=== PATIENT | male | born 1985 | race Caucasian/White ===

== ENCOUNTER 2018-08-13 16:03 | Emergency (ER) | payer OTHER ==
[2018-08-13 16:15] VITALS: BP 133/87
[2018-08-13] MEDS ORDERED: HYDROcod/ACETAM 5/325 MG TABLET PO STA (16:53)
[2018-08-13] MEDS ORDERED: diazePAM 5 MG TABLET PO STA (16:53)
[2018-08-13] MEDS ORDERED: KETOROLAC 60 MG/2 ML VIAL IM STA (16:53)
--- NOTE | 2018-08-13 16:56 | ED Physician Documentation ---
PD HPI BACK INJURY - Stated complaint Stated Complaint: LOWER BACK PX - History obtained from History obtained from: Patient - History of Present Illness Location: Lower Type of injury: Twist, Other (The pain started after doing yard work) Where injury occurred: Home Timing - onset: Today Timing - details: Abrupt onset Severity Comments: moderate Quality: Pain, Spasm Improved by: Rest Worsened by: Moving Associated symptoms: Other (no history of IV drug, No saddle anesthesia, No urinary retention). No: Fever, Weakness, Numbness, Incontinent of urine, Unable to urinate, Hematuria, Incontinent of stool Contributing factors: No: Anticoagulated, Prior back surgery Similar symptoms before: Has not had sx before Recently seen: Not recently seen Review of Systems Constitutional: denies: Fever, Chills Ears: denies: Ear pain Nose: denies: Congestion Cardiac: denies: Chest pain / pressure Respiratory: denies: Cough GI: denies: Abdominal Pain : denies: Dysuria Musculoskeletal: reports: Back pain. denies: Neck pain, Joint swelling Neurologic: denies: Generalized weakness, Numbness PD PAST MEDICAL HISTORY - Present Medications Home Medications: Ambulatory Orders Medication Instructions Recorded Confirmed Fexofenadine HCl [Briana Allergy] 60 mg PO 08/13/18 Naproxen 500 mg PO BID PRN #60 tablet 08/13/18 diazePAM [Valium] 5 mg PO TID PRN #15 tablet 08/13/18 - Allergies Allergies/Adverse Reactions: Allergies Allergy/AdvReac Type Severity Reaction Status Date / Time No Known Drug Allergies Allergy Verified 08/13/18 16:15 PD ED PE NORMAL - General General: Alert and oriented X 3, No acute distress - HEENT HEENT: Atraumatic, PERRL, EOMI - Derm Derm: Normal color - Extremities Extremities: No deformity, Normal ROM s pain, No edema - Neuro Neuro: Alert and oriented X 3, No motor deficit, No sensory deficit, Normal speech - Psych Psych: Normal mood PD ED PE EXPANDED - Back Back visual: 1 - tenderness Results - Vitals Vitals: Vital Signs - 24 hr 08/13/18 16:13 Temperature 36.8 C Heart Rate 72 Respiratory 16 Rate Blood Pressure 133/87 H O2 Saturation 100 Oxygen O2 Source Room air PD MEDICAL DECISION MAKING - ED course ED course: The patient's history and physical is consistent with musculoskeletal back pain. There is no findings to suggest an acute fracture and plain films would be of little utility. There is no clinical evidence to suggest cauda equina or epidural abscess. Presently the patient appears appropriate for conservative management as an outpatient. I recommended follow-up with primary care so that they can arrange for outpatient physical therapy. I discussed warning signs and recommended returning to the emergency department immediately for any worsening or any concerns. Departure - Departure Disposition: Home, Self Care Clinical Impression: Low back strain Qualifiers: Encounter type: initial encounter Qualified Code(s): S39.012A - Strain of muscle, fascia and tendon of lower back, initial encounter Condition: Good Instructions: ED Back Care Tips, ED Sprain Strain Lumbar Follow-Up: ISABELA MOON MD [Primary Care Provider] - Within 1 week (Please ask your primary care to arrange for an outpatient referral to physical therapy.) Prescriptions: diazePAM [Valium] 5 mg PO TID PRN #15 tablet PRN Reason: Spasms Naproxen 500 mg PO BID PRN #60 tablet PRN Reason: Pain Comments: Please return to the emergency department for worsening symptoms or any concerns.
== END 2018-08-13 17:11 | disposition home or self-care (01) ==
LOC: ED 16:03
DX: S39.012A Strain of muscle, fascia and tendon of lower back, initial encounter (principal); X50.1XXA Overexertion from prolonged static or awkward postures, initial encounter; Y93.H2 Activity, gardening and landscaping; Y92.007 Garden or yard of unspecified non-institutional (private) residence as the place of occurrence of the external cause
CPT/HCPCS: 96372; 99283; A9270

== ENCOUNTER 2023-09-01 13:51 | Outpatient (CLI) | payer OTHER ==
--- NOTE | 2023-09-01 21:12 | MRI Report ---
PROCEDURE: KNEE WO - LT INDICATIONS: LEFT KNEE INSTABILITY TECHNIQUE: Noncontrast sagittal PD fast spin echo and T2 fast spin echo with fat saturation, sagittal 3-D gradie nt sequence with fat saturation; coronal T1 spin echo and PD fast spin echo with fat saturation, and axial PD fast spin echo with fat saturation through the knee. COMPARISON: None. FINDINGS: Image quality: Excellent. Menisci: Subtle signal abnormality involving posterior horn of medial meniscus extending to inferior articulating surface suggestive of subtle oblique tear. The lateral meniscus is intact. The meniscal root ligaments appear intact. Cruciate ligaments: Patient is status post ACL reconstruction. ACL graft is intact. The PCL is intact . Medial structures: The medial collateral ligament appears intact. Visualized portions of the pes ans erinus tendons appear normal. No abnormal bursal fluid. Lateral structures: The lateral collateral ligament, long and short heads of the biceps femoris tend on appear intact. The popliteus tendon appears normal. Iliotibial band appears normal. Anterior structures: Distal quadriceps tendinosis is seen. Patellar tendon is intact. Patellar alignm ent is normal. No femoral trochlear dysplasia or ventral trochlear prominence. No edema in the infr apatellar fat pad. Bones and cartilage: There is normal left knee alignment. No bone marrow contusions or fractures. Dolores int space narrowing and low-grade chondromalacia and lateral femoral tibial compartment is seen. Joint space: There is small knee joint fluid. No Felix's cyst. Normal appearing synovial plicae ar e incidentally noted. IMPRESSION: 1. Prior ACL reconstruction with postsurgical changes. No gross marrow edema. No fracture or dislocat ion. 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 S mall joint effusion, no loose bodies. 2. ACL graft is intact. The PCL is intact. 3. Finding is concerning for very subtle oblique tear involving posterior horn of medial meniscus ext ending to inferior articulating surface. The lateral meniscus is intact. 4. Distal quadriceps tendinosis. Reviewed by: Rodney Garcia MD on 09/01/2023 9:10 PM PST Approved by: Rodney Garcia MD on 09/01/2023 9:10 PM PST Station ID: [id number]
== END 2023-09-01 13:52 | disposition home or self-care (01) ==
LOC: DI 13:51
PROVIDERS: ATTEND Preventive Medicine Aerospace Medicine
DX: M25.362 Other instability, left knee (principal); M17.12 Unilateral primary osteoarthritis, left knee; M94.262 Chondromalacia, left knee; M67.864 Other specified disorders of tendon, left knee

== ENCOUNTER 2024-04-20 14:07 | Outpatient (CLI) | payer OTHER ==
--- NOTE | 2024-04-20 20:37 | MRI Report ---
PROCEDURE: Cervical Spine WO INDICATIONS: CERVICALGIA TECHNIQUE: Noncontrast sagittal T1 spin echo and T2 fast spin echo, sagittal STIR, foraminal oblique sagittal T2 fast spin echo, and axial gradient echo or T2 fast spin echo through the cervical spine. COMPARISON: None. FINDINGS: Image quality: Excellent. Alignment and Curvature: There is normal bony alignment. Bone Marrow: Marrow demonstrates normal overall signal. Spinal Cord: Visualized spinal cord has normal size and signal. No cerebellar tonsillar herniation. Paraspinous Soft Tissues: No paravertebral masses. Prevertebral soft tissues are normal in thicknes s. C2-C3: Normal in appearance. C3-C4: Normal in appearance. C4-C5: Normal in appearance. C5-C6: Mild uncovertebral hypertrophy on the left, with superimposed broad-based disc bulge. There i s slight effacement of the spinal cord. Moderate right neural foraminal narrowing at this level. C6-C7: Normal in appearance. C7-T1: Normal in appearance. IMPRESSION: Mild degenerative disc disease at C5-6, causing effacement of the spinal cord. Moderate right neural foraminal narrowing at this level. Reviewed by: Dixon Sanders MD on 04/20/2024 8:36 PM PDT Approved by: Dixon Sanders MD on 04/20/2024 8:36 PM PDT Station ID: [id number]
== END 2024-04-20 14:08 | disposition home or self-care (01) ==
LOC: DI 14:07
PROVIDERS: ATTEND Student in an Organized Health Care Education/Training Program
DX: M50.322 Other cervical disc degeneration at C5-C6 level (principal); M48.02 Spinal stenosis, cervical region